=== PATIENT | male | born 1990 | race Caucasian/White ===

== ENCOUNTER 2018-04-24 22:36 | Emergency (ER) | payer OTHER ==
--- NOTE | 2018-04-24 22:56 | RAD ---
RIGHT HAND THREE VIEW 04/24/18 HISTORY: Punched a sofa. Pain. COMPARISON: None. FINDINGS: there is a mildly comminuted fracture of the fourth metacarpal proximal diaphysis with two cortex wid th dorsal displacement. Remainder of the and is unremarkable. IMPRESSION: Mildly comminuted fracture fourth metacarpal proximal diaphysis with two cortex width dorsal displace ment. POS: [facility]
== END 2018-04-24 23:10 | disposition home or self-care (01) ==
LOC: ERS 22:36
DX: S62.314A Displaced fracture of base of fourth metacarpal bone, right hand, initial encounter for closed fracture (principal); E10.9 Type 1 diabetes mellitus without complications; W22.03XA Walked into furniture, initial encounter
CPT/HCPCS: 26600

== ENCOUNTER 2018-05-21 10:07 | Day surgery (SDC) | payer OTHER ==
[2018-05-21] MEDS ORDERED: Fentanyl 100 MCG/2 ML VIAL ONE ×3 (10:31→11:05)
[2018-05-21] MEDS ORDERED: Midazolam HCl 2 mg/2 ml Vial ONE ×2 (10:31→11:05)
[2018-05-21] MEDS ORDERED: Bupivacaine PF 0.5% 30 ML VIAL ONE (11:08)
[2018-05-21] MEDS ORDERED: Bacitracin Zinc Ointment 30 gm TUBE ONE (11:08)
[2018-05-21 11:12] LABS: #Monocytes 0.4 thou/uL (0.11-0.59); #Neutrophils 2.9 thou/uL (1.40-6.50); %Basophils 0.6 % (0.0-1.0); %Eosinophils 0.9 % (0.0-10.0); %Lymphocytes 36.9 % (21.0-51.0); %Monocytes 6.6 % (0.0-10.0); Hemoglobin 15.2 g/dL (14.0-18.0); Mean Corpuscular HGB CONC 33.8 g/dL (32.0-36.0); Mean Corpuscular Volume 82.8 fL (78.0-98.0); Mean Platelet Volume 9.2 fL (7.4-10.4); Platelet Count 175 thou/uL (130-400); RBC Distribution Width 11.7 % (11.5-14.5); Red Blood Cell (RBC) Count 5.43 mill/uL (4.70-6.10); White Blood Cell (WBC) Count 5.3 thou/uL (4.8-10.8)
[2018-05-21] MEDS ORDERED: Levofloxacin 500 mg/D5W 100 ml Premix Bag ONE (11:21)
[2018-05-21] MEDS ORDERED: Ketorolac Tromethamine 30 MG/ML VIAL ONE ×2 (13:47→14:44)
--- NOTE | 2018-05-21 14:01 | RAD ---
RIGHT FINGERS TWO VIEWS: HISTORY: Status post ORIF right finger. FINDINGS: There is placement of a metal plate and screws stabilizing the minimally displaced and foreshortened fracture of the fourth metatarsal shaft, with good position and alignment. IMPRESSION: Metal plate and screws stabilizing the fourth metacarpal shaft with improved position and alignment. POS: [facility]
[2018-05-21] MEDS ORDERED: Lidocaine 1% PF 5 ML VIAL ONE (14:44)
[2018-05-21] MEDS ORDERED: Ondansetron PF 4 MG/2 ML Vial ONE (14:44)
[2018-05-21] MEDS ORDERED: PROPOFOL 200 MG/20 ML VIAL ONE (14:44)
[2018-05-21] MEDS ORDERED: Dexamethasone 20 MG/5 ML VIAL ONE (14:44)
--- NOTE | 2018-05-21 16:48 | OP ---
DATE OF PROCEDURE: 05/21/2018 PREOPERATIVE DIAGNOSIS: Right ring finger metacarpal displaced fracture in 3 directions, 1. Angulated apex radial approximately 15 degrees. 2. Angulated apex dorsal of 35 degrees and rotated externally towards the ring finger with marked displacement clinically and radiographically. 3. 3.75 weeks since the injury. POSTOPERATIVE DIAGNOSIS: Right ring finger metacarpal displaced fracture in 3 directions, 1. Angulated apex radial approximately 15 degrees. 2. Angulated apex dorsal of 35 degrees and rotated externally towards the ring finger with marked displacement clinically and radiographically. 3. 3.75 weeks since the injury. FINDINGS: Only approximately 3-4 mm bony bridge with marked gross motion of the remaining 80% of the fracture does not in the position to heal. PROCEDURES PERFORMED: 1. Open reduction and internal fixation of the ring finger metacarpal fracture. 2. Use the C-arm. 3. Application of short-arm splint postop. ANESTHESIA: General augmented by a preoperative supraclavicular block. TOURNIQUET TIME: 36 minutes. BLOOD LOSS: Less than 10 mL. INDICATIONS: The patient had 3.75-week-old fracture with angulation displacement described above and the fact that there was not a bony bridge along with shortening and angulation to give the patient predictably solid healing and good function. DESCRIPTION OF PROCEDURE: After successful anesthesia listed above, the limb was prepped and draped. Time-out was done appropriately. C-arm brought into the field. We identified the deformity confirmed indeed there was no healing, but there was gross motion before skin was cut at the fracture line. With the limb exsanguinated, tourniquet was inflated to 250 mmHg pressure and made a zigzag incision centered over the angulation tip carried through the skin and subcutaneous tissue. We preserved all superficial ulnar nerve branches and then the interossei area to visualize the fracture. We then began removed. The 25% of the fracture that had started to heal palmarly, maintained angle between completely removed any callus down to bleeding bone surface that was raw and pink, I then performed reduction by distraction, correction angulation, and then visualized. There was no malrotation or angulation. We then held this with a clamp, K-wired with a small 0.35 K-wire, and now we had an anatomic position with no malrotation and no angulation. We took a 6-hole plate and cut down to 5-hole, it was a 2.0 screw and then began a 3-hole measuring screw technique from proximal to distal and rotation was maintained anatomically. The length was excellent. The x-ray showed anatomic position with no screw being too long or short. We tightened the screws well last time, removed the K-wire, and then checked the rotation was still excellent. Final radiographs were made. Tourniquet deflated. Hemostasis was obtained. We then closed the interosseous muscle with interrupted 2-0 Vicryl, closed the subcutaneous tissue with excellent hemostasis with a running 4-0 Monocryl and then put a 4-0 nylon interrupted mattress pattern on the epidermal closure. The patient left the operating room without evidence of anesthetic operative complication and we applied a short-arm splint that was static. Job ID: [id number]
== END 2018-05-21 16:10 | disposition home or self-care (01) ==
LOC: SDC 10:07
PROVIDERS: ATTEND Orthopaedic Surgery Hand Surgery
PROC: 0PSP04Z Reposition Right Metacarpal with Internal Fixation Device, Open Approach (ICD-10-PCS; principal; 2018-05-21)
DX: S62.324A Displaced fracture of shaft of fourth metacarpal bone, right hand, initial encounter for closed fracture (principal); E11.9 Type 2 diabetes mellitus without complications; Z79.4 Long term (current) use of insulin; Z88.0 Allergy status to penicillin
CPT/HCPCS: 36415; 36416; 76000; 85025; 85652; C1713; J1100; J1885; J1956; J2001; J2250; J2405; J2704; J3010; S0020